=== PATIENT | male | born 1970 | race Caucasian/White ===

== ENCOUNTER → 2017-09-01 | Outpatient (CLI) | payer OTHER | LOC: RAD 11:08 | DX: M16.11 Unilateral primary osteoarthritis, right hip (principal) ==

== ENCOUNTER 2018-02-16 05:30 | Day surgery (SDC) | payer OTHER ==
[2018-02-07 08:54] LABS: URINE BILIRUBIN NEGATIVE (Negative); URINE BLOOD NEGATIVE (Negative); URINE CLARITY CLEAR; URINE COLOR YELLOW; URINE GLUCOSE-RANDOM* NEGATIVE (Negative); URINE KETONES NEGATIVE (Negative); URINE LEUKOCYTES-REFLEX NEGATIVE (Negative); URINE NITRITE-REFLEX NEGATIVE (Negative); URINE PROTEIN (DIPSTICK) NEGATIVE (Negative); URINE SPECIFIC GRAVITY 1.025 (1.005-1.035); URINE UROBILINOGEN 0.2 E.U./dl (0.2-1.0)
[2018-02-07 08:55] LABS: HEMATOCRIT 44.4 % (42.0-52.0); HEMOGLOBIN 15.5 gm/dL (14.0-18.0); MCH 32.7 pg (26.0-34.0); MCHC 34.9 g/dL (28.0-37.0); MCV 93.4 fL (80.0-100.0); RBC 4.75 mil/uL (4.50-6.00); RDW 13.2 % (10.5-14.5); WBC 5.8 thou/uL (4.0-11.0)
[2018-02-07 09:02] LABS: ALBUMIN 4.3 g/dL (3.4-5.0); CALCIUM 9.7 mg/dL (8.5-10.1); POTASSIUM 4.8 mmol/L (3.5-5.1)
[2018-02-07 09:08] LABS: PROTIME 9.5 Seconds (9.3-11.4)
[~2018-02-16] VITALS: Ht 172.7 cm; Wt 95.3 kg
[~2018-02-16 05:30] MED LIST: MOBIC15 MG PO; TYLENOL EXTRA500 MG PO; ULTRAM50 MG PO
[2018-02-16 13:05] VITALS: BP 126/86
[2018-02-16 19:12] VITALS: BP 114/68
--- NOTE | 2018-02-16 19:45 | NUR ---
PT ARRIVED FROM POST OP 174, RIGHT HIP ARTHROPLASTY, A/OX4, PAIN MANAGED WITH MEDICATIONS. ORDERS ACKNOWLEDGED. PICCO DRESSING C/D/I, WITH ICE ON OVER DRESSSING. BEDREST, CONTINENT WITH URINAL. PILLOW BETWEEN LEGS. ASSESMENT COMPLETED. ORRIENTED TO ROOM. FALL PRECAUTIONS IN PLACE. CALL LIGHT IN REACH.,
[2018-02-17 00:07] VITALS: BP 103/63
[2018-02-17 02:59] VITALS: BP 115/75
--- NOTE | 2018-02-17 03:19 | NUR ---
Pt. rested quietly at intervals during the night when checked on during frequent rounds. Dressing to right hip is dry and intact. He has been given pain meds (see emar) for c/o pain to his right hip with some relief of pain voiced or observed. He has been voiding without difficulty. Plan of care reviewed with the patient. Bed alarm is on.
[2018-02-17 05:32] LABS: HEMATOCRIT 36.3 % (42.0-52.0); MCH 31.2 pg (26.0-34.0); MCV 94.6 fL (80.0-100.0); RBC 3.83 mil/uL (4.50-6.00); RDW 13.2 % (10.5-14.5); WBC 11.5 thou/uL (4.0-11.0)
[2018-02-17 07:02] VITALS: BP 121/83
--- NOTE | 2018-02-17 09:48 | NUR ---
INITIAL ASSESSMENT: Pt evaluated for d/c planning needs. Reviewed chart and spoke with nurse and pt. Pt is alert and oriented. Pt lives alone in house and was independent with ADL's prior to admission. Pt is employed and drives. Pt has cane at home. Pt will be staying with his sister on d/c from hospital. Pt requires walker for home use. Referral sent to [facility]. Will await return call re: insurance authorization for walker. Pt has outpatient PT scheduled for 02/18. No other needs identified.
[2018-02-17] MEDS ORDERED: HYDROCODON-ACE1 EAC7 PO (10:23)
[2018-02-17] MEDS ORDERED: TRI-BUFFERED A325 M1 PO (10:23)
[2018-02-17] MEDS ORDERED: ONDANSETRON HCL4 M1 PO (10:24)
[2018-02-17] MEDS ORDERED: MS CONTIN15 MG PO (10:24)
[2018-02-17] MEDS ORDERED: NEURONTIN 300300 M1 PO (10:24)
[2018-02-17 10:29] VITALS: BP 121/83
--- NOTE | 2018-02-17 12:31 | NUR ---
DIS PT A/O X4, VSS, AFEBRILE, PAIN MANAGED BY MEDICATIONS. PT ABLE TO WORK PHY. THERAPIST. PT IS FOR DC TODAY. DC PACKET AND MED SCRIPTS PROVIDED.
--- NOTE | 2018-02-23 16:53 | O ---
[facility] [place] [address] OPERATIVE REPORT Name: CAMPOS COX Room #: DEP [facility] M..#: [id number] Admission: 02/16/18 ������������������ Attend Phys: Wilmar Aguilar MD Discharge: 02/17/18 ������������������ Date of : 74 Report #: [id number] THIS REPORT FOR: //name// CC: Radha Aguilar DATE OF SERVICE: 02/16/2018 PREOPERATIVE DIAGNOSIS: Right hip osteoarthritis. POSTOPERATIVE DIAGNOSIS: Right hip osteoarthritis. PROCEDURE: Right total hip arthroplasty. SURGEON: Wilmar Aguilar MD CONTROL ROOM SUPERVISOR: Sabine Shah PA-C. INDICATIONS FOR ASSISTANCE: Throughout the case, extensive retraction and manipulation of the hip including dislocation and reduction was required. This was afforded to me by my internal medicine physician assistant. ANESTHESIA: General endotracheal. IMPLANTS: [employer] size 10 high offset Synergy press fit stem, a size 52 R3 acetabular cup and a size 36 -3 Oxinium head. ESTIMATED BLOOD LOSS: 50 mL. COMPLICATIONS: None. SPECIMENS: None. CONDITION UPON LEAVING THE OPERATING ROOM: Stable. INDICATION FOR PROCEDURE: The patient is a 47-year-old gentleman with right hip osteoarthritis who had failed conservative measures for this and after discussion with him, he elected for right total hip arthroplasty. DESCRIPTION OF PROCEDURE: Risks, benefits, alternatives, complications were discussed in detail with the patient including but not limited to risk of anesthesia, risk of damage to nerves, arteries and blood vessels, risk for infection and bleeding, risk for leg length discrepancy, instability and need for reoperation. Informed consent was obtained from the patient. The right hip was appropriately marked in the preoperative holding area. IV clindamycin was given for preoperative antibiotics. He was brought to the operating room and [facility] [address] [place] [address] OPERATIVE REPORT Name: CAMPOS COX Room #: DEP [facility]#: [id number] Admission: 02/16/18 ������������������ Attend Phys: Wilmar Aguilar MD Discharge: 02/17/18 ������������������ Date of : 74 Report #: [id number] placed in supine position on operating room table. General endotracheal anesthesia was induced without complication. He was then placed in the left lateral decubitus position with the right hip uppermost. Right hip and lower extremity were prepped and draped in normal sterile fashion. Timeout was performed properly identifying the patient and procedure as well as the instrumentation and implants. All in the operating room were in agreement. Standard posterior approach to the hip was made with a 10 blade through the skin. Dissection was taken down to the fascia with Bovie cautery and a Wall elevator was used to clean the fascia. A fresh 10 blade was used to make a fascial incision. This was taken proximally and distally with curved Cortes scissor. A Charnley retractor was placed. Trochanteric bursa was taken down with Bovie cautery. Piriformis tendon was identified, tagged and taken down with Bovie. Short external rotators were also taken down with Bovie cautery. Capsulotomy was made and capsule ends were tagged for later repair. Hip was dislocated and there was extensive osteoarthritic change of the femoral head. Femoral neck cut was made 1 cm proximal to lesser trochanter based on preoperative templating and the femoral head was removed. Deep acetabular retractors were placed. The labrum was removed sharply. Pulvinar was removed with Bovie cautery. The acetabulum was then sequentially reamed up to a size 52, at which point, there was excellent bleeding cancellous bone. A size 51 trial cup was placed and found to have a good fit. A final size 52 R3 acetabular cup was placed and seated. One acetabular screw was placed for backup fixation and a polyethylene liner for 36 head was placed. Attention was then turned to the femur. This was reamed and broached up to a size 10, at which point, the size 10 broach was stable. This was trialed with a high offset neck and a 36 +0 head. Hip was reduced, taken through range of motion, found to be stable, found to have equal leg lengths. The hip was dislocated and the broach was removed and a final size 10 high offset Synergy press-fit stem was placed and seated. This did not seat quite as far as the broach and so this was trialed with a 36 -3 head. Hip was reduced, taken through range of motion, found to be stable, found to have equal leg lengths. Hip was dislocated one last time and a final size 36 -3 Oxinium head was placed. Hip was reduced, taken through range of motion, found to be stable, found to have equal leg lengths. After this, the hip was thoroughly irrigated with normal saline. A periarticular injection consisting of morphine, ropivacaine, epinephrine, Toradol was placed around the hip joint capsule. A gram of vancomycin was placed deep in the joint. The capsule and piriformis were repaired with 0 FiberWire. The fascia was closed with 0 Vicryl, skin was closed with 2-0 Vicryl and 3-0 Monocryl. Dermabond and a MARTHA dressing was applied. The patient tolerated this procedure well and went to recovery room under care of Anesthesia postoperatively. ��������������������������������������������� <ELECTRONICALLY SIGNED> ���������������������������������������� By: Wilmar Aguilar MD ��������������������������������������������� 02/23/18 [id number] [id number] Wilmar Aguilar MD /marshall
== END 2018-02-17 14:28 | disposition home or self-care (01) ==
LOC: TBA 05:30 → OR 05:30 → 4W 16:51 → ENTRNSPT 02-17 13:46 → EDTRNSPTSTS 02-17 13:49 → OR 02-17 14:28
PROVIDERS: Orthopaedic Surgery
DX: M16.11 Unilateral primary osteoarthritis, right hip (principal); J45.909 Unspecified asthma, uncomplicated; F17.210 Nicotine dependence, cigarettes, uncomplicated; Z98.890 Other specified postprocedural states; Z88.0 Allergy status to penicillin; Z79.899 Other long term (current) drug therapy; Z79.891 Long term (current) use of opiate analgesic
CPT/HCPCS: 10047; 50010; 50101; 50382; 50414; 53000; 53078; 53368; 54118; 56524; 56527; 56528; 56530; 57095; 57103; 62110; 62900; 65131; 70005

== ENCOUNTER → 2018-04-22 | Outpatient (CLI) | payer OTHER ==
[~2018-04-22] MED LIST changes: +HYDROCODON-ACE1 EAC7 PO; +MS CONTIN15 MG PO; +NEURONTIN 300300 M1 PO; +ONDANSETRON HCL4 M1 PO; +TRI-BUFFERED A325 M1 PO
== END ==
LOC: ULTRA 12:53
DX: N28.89 Other specified disorders of kidney and ureter (principal); M16.11 Unilateral primary osteoarthritis, right hip

== ENCOUNTER → 2019-05-15 | Outpatient (CLI) | payer OTHER | LOC: RAD 15:05 | DX: S82.61XA Displaced fracture of lateral malleolus of right fibula, initial encounter for closed fracture (principal); M25.471 Effusion, right ankle; X58.XXXA Exposure to other specified factors, initial encounter; Y93.89 Activity, other specified; Y92.89 Other specified places as the place of occurrence of the external cause; Y99.8 Other external cause status ==

== ENCOUNTER → 2019-10-30 | Outpatient (CLI) | payer OTHER | LOC: RAD 14:06 | PROVIDERS: ATTEND Family Medicine | DX: M16.12 Unilateral primary osteoarthritis, left hip (principal) ==